=== PATIENT | male | born 1995 | race Caucasian/White ===

== ENCOUNTER 2017-06-11 13:49 | Emergency (ER) | payer OTHER ==
[~2017-06-11] VITALS: Ht 182.9 cm; Wt 89.4 kg
[2017-06-11 13:55] VITALS: TEMP 37; Ht 182.9 cm; Wt 89.4 kg
[2017-06-11] MEDS ORDERED: CETI10TA84 PO (14:26)
[2017-06-11] MEDS ORDERED: BUPR-83 PO (14:26)
[2017-06-11] MEDS ORDERED: ACETAMINOPHEN 500 MG TAB PO STA (14:42)
[2017-06-11] MEDS ORDERED: SODIUM CHLORIDE 0.9% 1000ML 1,000 ML IV STA (14:42)
[2017-06-11] MEDS ORDERED: METOCLOPRAMIDE HCL INJ 5 MG/ML 2 ML VIAL IV STA (14:42)
[2017-06-11] MEDS ORDERED: KETOROLAC TROMETHAMINE 30 MG/ML VIAL IV STA (14:42)
[2017-06-11] MEDS ORDERED: DiphenhydrAMINE HCL 50 MG/ML VIAL IV STA (14:42)
--- NOTE | 2017-06-11 15:12 | EMERGENCY ROOM VISIT NOTE ---
History Report prepared by Rocky: Renetta Berry Under the Supervision of: Dr. Timmy Serrano M.D. First contact with patient: 14:04 Chief Complaint: HEADACHE Stated Complaint: BLURRY/CHANGING VISION, DRAKE, FEVER History of Present Illness The patient is a 21 year old white male with a past medical history of depression and anxiety who presents to the ED with a cc of an intermittent frontal headache for the past two days. His symptoms are worse when he tries to get up and do something, and alleviated with resting at home and drinking fluids. He states that it feels like he is straining to see. He often closes his eyes and puts his head down to rest. Pt has been taking ibuprofen for his symptoms. He rates his current pain as a 4/10 in severity. Positive dizziness, blurry vision, fevers, sinus congestion, cough, nausea, palpitations. Negative vomiting, diarrhea, urinary symptoms, rash. Pt denies recent trauma or injury. He denies any recent heavy lifting. He does not wear glasses or contacts. Pt denies sick contacts. Two weeks ago the patient was switched from Lexapro to Wellbutrin for his anxiety and depression. Source of History: patient Onset: 2 days ago Position: head Symptom Intensity: 4/10 Timing: intermittent Modifying Factors (Worsening): other (getting up and being active) Modifying Factors (Relieving): rest, drinking (fluids), ibuprofen Associated Symptoms: + fevers, + cough, + nausea, No vomiting, No diarrhea, No urinary symptoms, No rash Note: Pt notes dizziness, blurry vision, sinus congestion, palpitations. Review of Systems See HPI for pertinent positives and negatives. A total of ten systems were reviewed and were otherwise negative. Past Medical & Surgical Medical Problems: (1) Anxiety (2) Depression Family History Anxiety disorder FHx: depression Heart disease Social History Smoking Status: Current Every Day Smoker Smokeless Tobacco Use: No Alcohol Use: occasionally Drug Use: none Marital Status: single Housing Status: lives with friends Occupation Status: [employer] student Current/Historical Medications Scheduled Bupropion (Wellbutrin), 300 MG PO TID Cetirizine (Zyrtec), 10 MG PO DAILY Allergies Coded Allergies: Nickel (Unverified Allergy, Intermediate, ., 06/11/17) POLLEN (Unverified Allergy, Intermediate, ., 06/11/17) Physical Exam Vital Signs Date Time Temp Pulse Resp B/P (MAP) Pulse Ox O2 Delivery O2 Flow Rate FiO2 06/11/17 15:19 99 141/88 99 Room Air 06/11/17 13:55 37.0 114 18 166/104 97 Room Air Physical Exam GENERAL: Awake, alert, well-appearing, NAD HENT: Normocephalic, atraumatic. No preseptal or periorbital swelling, no proptosis. EOMI. EYES: Normal conjunctiva. Sclera non-icteric. NECK: Supple. No nuchal rigidity. FROM. No neck stiffness, no signs of meningismus. RESPIRATORY: CTAB, no rhonchi, wheezing, crackles CARDIAC: RRR, no MRG ABDOMEN: Soft, NTND, BS+ MSK: No chest wall TTP, no LE edema NEURO: CN 2-12 intact, 5/5 upper and lower extremity strength, no dysmetria, no drift, good finger to nose, no sensory deficits. SKIN: No rash or jaundice noted. Medical Decision & Procedures Medications Administered Medications (Trade) Dose Ordered Sig/Ileana Route Start Time Stop Time Status Last Admin Dose Admin Sodium Chloride 1,000 ml @ 999 mls/hr Q1H1M STAT IV 06/11/17 14:42 06/11/17 15:42 DC 06/11/17 14:55 999 MLS/HR Metoclopramide HCl (Reglan Inj) 10 mg NOW STAT IV 06/11/17 14:42 06/11/17 14:44 DC 06/11/17 14:55 10 MG Ketorolac Tromethamine (Toradol Inj) 30 mg NOW STAT IV 06/11/17 14:42 06/11/17 14:44 DC 06/11/17 14:55 30 MG Acetaminophen (Tylenol Tab) 1,000 mg NOW STAT PO 06/11/17 14:42 06/11/17 14:44 DC 06/11/17 14:56 1,000 MG Diphenhydramine HCl (Benadryl Inj) 50 mg NOW STAT IV 06/11/17 14:42 06/11/17 14:44 DC 06/11/17 14:55 50 MG ED Course 1425: The patient was evaluated in room C8. A complete history and physical exam was performed. 1442: Benadryl 50 mg IV, Tylenol tab 1000 mg PO, Toradol 30 mg IV, Reglan 10 mg IV, NSS 1000 ml @ 999 mls/hr IV 1536: I reassessed the patient at this time. He is feeling better and resting comfortably. I discussed the results and treatment plan with the patient. I answered all pertaining questions that he had. He expressed understanding and verbalized agreement. The patient will be discharged home. Medical Decision The patient is a 21 year old white male with a past medical history of depression and anxiety who presents to the ED with a cc of an intermittent frontal headache for the past two days. Differential diagnosis: Etiologies such as migraine headache, meningitis, sinusitis, CO exposure, ICH, SAH, infection, tumor, headache, sinus thrombosis, arterial dissection, as well as others were entertained. Patient was seen and evaluated at the bedside. Patient had no signs of meningismus. Patient stated that he felt feverish but no documented fever. Afebrile vital signs stable. Patient was complaining of some prior mild retro- orbital pain area patient did not have this pain now. Patient is not proptotic is no preseptal or periorbital cellulitis. EOM intact and without pain. Less likely preseptal or orbital cellulitis. Patient is no neurologic dysfunction. No sensory deficit. Unlikely stroke or TIA. Patient was given supportive care. Patient did not need CT of the brain. Upon reassessment patient was feeling much improved headache had resolved. Patient was given strict follow-up, discharge, and return precautions. Patient agreed with plan of care patient was safely discharged home. Medication Reconcilliation Current Medication List: was personally reviewed by me Blood Pressure Screening Patient's blood pressure: Elevated blood pressure Blood pressure disposition: Elevated BP felt to be situational Impression Primary Impression: Headache Scribe Attestation The scribe's documentation has been prepared under my direction and personally reviewed by me in its entirety. I confirm that the note above accurately reflects all work, treatment, procedures, and medical decision making performed by me. Departure Information Dispostion Home / Self-Care Referrals No Doctor, Assigned (PCP) [facility] Forms HOME CARE DOCUMENTATION FORM, IMPORTANT VISIT INFORMATION Patient Instructions Headache Pain, My [facility] Additional Instructions Please return to the emergency department if you have worsening or recurrent symptoms not amenable to at-home treatment. Please call for a follow-up appointment with her primary care physician. Please take your medications as prescribed. If you have other concerns and/or complaints please feel free to also call your primary care physician's office or return the ED for further evaluation, management, and treatment. You may take 600 mg Ibuprofen every 6 hours as needed for pain with food for no more than 2 consecutive days. You may take tylenol 1000mg every 6 hours as needed for pain. You may take motrin and tylenol separately or at the same time. You have been examined and treated today on an emergency basis only. This is not a substitute for, or an effort to provide, complete comprehensive medical care. It is impossible to recognize and treat all injuries or illnesses in a single emergency department visit. It is therefore important that you follow up closely with [facility]. Call as soon as possible for an appointment. Thank you for your time and consideration. I look forward to speaking with you again soon. Please don't hesitate to call us if you have any questions. Problem Qualifiers Primary Impression: Headache Headache type: unspecified Headache chronicity pattern: acute headache Intractability: not intractable Qualified Codes: R51 - Headache
[2017-06-11 16:01] VITALS: BP 139/92; PULSE 99; O2SAT 98
== END 2017-06-11 16:03 | disposition home or self-care (01) ==
LOC: C.EDB 13:52 → C.EDC 16:03
DX: R51 Headache (principal); F41.9 Anxiety disorder, unspecified; F32.9 Major depressive disorder, single episode, unspecified; Z81.8 Family history of other mental and behavioral disorders; F17.210 Nicotine dependence, cigarettes, uncomplicated; Z79.899 Other long term (current) drug therapy